=== PATIENT | female | born 1990 | race Caucasian/White ===

== ENCOUNTER → 2025-04-04 08:40 | Outpatient (REF) | payer BC, SELFPAY | LOC: MRI 3T 08:40 | PROVIDERS: ATTENDING PHYSICIAN Obstetrics & Gynecology; FAMILY PHYSICIAN Family Medicine | DX: R39.15 Urgency of urination (principal); N39.3 Stress incontinence (female) (male) | CPT/HCPCS: 72197; A9575 ==